=== PATIENT | male | born 1965 | race Caucasian/White ===

== ENCOUNTER 2019-07-27 23:27 | Emergency (ER) | payer OTHER ==
[~2019-07-27] VITALS: Ht 177.8 cm; Wt 81.6 kg
[~2019-07-27 23:27] MED LIST: ACETAMINOPHEN325 M1 PO; KEFLEX500 MG PO; NOHOMEMEDICATIONS; PERCOCET PO
[2019-07-27] MEDS ORDERED: ASA81BEC PO (23:37)
[2019-07-27] MEDS ORDERED: EPIPEN0.3 MG/0.1 IM (23:37)
[2019-07-27] MEDS ORDERED: NORVASC 2.5 MG2.5 M1 PO (23:37)
[2019-07-27] MEDS ORDERED: OLANZAPINE5 M1 PO (23:37)
[2019-07-27] MEDS ORDERED: FAMOTIDINE 20 M20 MG PO (23:38)
[2019-07-27] MEDS ORDERED: RAYOS5 MG PO (23:38)
[2019-07-27] MEDS ORDERED: LIPITOR 40 MG T40 M1 PO (23:38)
[2019-07-27 23:51] LABS: ABSOLUTE EOSINOPHILS 0.3 thou/uL (0.0-0.7); ABSOLUTE MONOCYTES 0.8 thou/uL (0.0-1.2); ABSOLUTE NEUTROPHILS 2.7 thou/uL (1.6-8.1); BASOPHILS 0.6 %; EOSINOPHILS 4.4 %; HEMOGLOBIN 14.3 gm/dL (14.0-18.0); LYMPHOCYTES 34.5 %; MCH 30.6 pg (26.0-34.0); MCHC 34.8 g/dL (28.0-37.0); MCV 87.8 fL (80.0-100.0); MONOCYTES 13.8 %; NUCLEATED RBCS 0 /100WBC; PLATELET COUNT* 233 thou/uL (150-400); POLYS 46.7 %; RBC 4.67 mil/uL (4.50-6.00); RDW-CV 13.2 % (10.5-14.5); WBC 5.7 thou/uL (4.0-11.0)
[2019-07-28] LABS: CALCIUM 9.1 mg/dL (8.5-10.1); CREATININE 1.1 mg/dL (0.6-1.3)
[2019-07-28 00:12] LABS: ALBUMIN 4.2 g/dL (3.4-5.0); TOTAL BILIRUBIN 0.3 mg/dL (<0.1-1.0); TOTAL PROTEIN 7.8 g/dL (6.4-8.2)
[2019-07-28] MEDS ORDERED: OXYCODONE HCL 55 MG PO (03:32)
[2019-07-28] MEDS ORDERED: TORADOL 10 MG T10 MG PO (03:32)
[2019-07-28] MEDS ORDERED: FLEXERIL PO (03:32)
[2019-07-28 03:41] VITALS: BP 176/97
--- NOTE | 2019-07-28 17:48 | EKG ---
[place] [address] ELECTROCARDIOGRAM REPORT Name: ALEISHA JUAREZ Room: [facility]#: [id number] Admission: 07/27/19 Attend Phys: Discharge: 07/28/19 Date of : 63 Report #: [id number] THIS REPORT FOR: //name// [facility] ED Test Date: 2019-07-27 Test Time: 23:44:41 Pat Name: ALEISHA JUAREZ Department: Room: Gender: M [employer]: fernandes : 1965 Requested By: Christine Jeronimo Order Number: [id number] MD: Grayson Mcgee Measurements Intervals [place] Rate: 76 P: 41 VT: 153 QRS: 3 QRSD: 82 T: 52 QT: 372 QTc: 419 Interpretive Statements Sinus rhythm Possible anteroseptal infarct, old Compared to ECG 03/31/2019 10:22:21 No significant changes Electronically Signed On 07-28-2019 17:48:11 CDT by Grayson Mcgee [email or web address] <ELECTRONICALLY SIGNED> By: Grayson Mcgee MD, [facility] 07/28/19 1748 [id number] 2344 Grayson Mcgee MD, FACC /EPI
== END 2019-07-28 03:41 | disposition home or self-care (01) ==
LOC: M.ERS 23:27
PROVIDERS: Personal Emergency Response Attendant
DX: M79.18 Myalgia, other site (principal); Z88.1 Allergy status to other antibiotic agents; Z88.5 Allergy status to narcotic agent; Z88.6 Allergy status to analgesic agent; Z90.49 Acquired absence of other specified parts of digestive tract